=== PATIENT | female | born 1990 | race Two or more races ===

== ENCOUNTER 2021-12-03 14:25 | Emergency (ER) | payer MEDICAID, SELFPAY ==
[2021-12-03] MEDS ORDERED: Ondansetron ODT 4 MG TAB ONE (15:19)
== END 2021-12-03 16:04 | disposition home or self-care (01) ==
LOC: ERS 14:25
DX: B34.9 Viral infection, unspecified (principal); R42 Dizziness and giddiness; Z20.822 Contact with and (suspected) exposure to COVID-19
CPT/HCPCS: 99284; Q0162; U0003; U0005

== ENCOUNTER 2021-12-20 11:42 | Emergency (ER) | payer SELFPAY ==
[2021-12-20] MEDS ORDERED: Morphine 4 MG/ML VIAL ONE (13:20)
== END 2021-12-20 14:46 | disposition home or self-care (01) ==
LOC: ERS 11:42
DX: S93.324A Dislocation of tarsometatarsal joint of right foot, initial encounter (principal); Y04.2XXA Assault by strike against or bumped into by another person, initial encounter
CPT/HCPCS: 96372; J2270

== ENCOUNTER 2021-12-29 06:16 | Day surgery (SDC) | payer SELFPAY ==
[2021-12-28 13:56] VITALS: BMI 21.4
[2021-12-29] MEDS ORDERED: Neomycin-Polymyxin 1 ML AMP ONE (06:36)
[2021-12-29] MEDS ORDERED: Ropivacaine 0.5% HCl/PF (150 MG/30 ML VIAL) ONE (06:45)
[2021-12-29] MEDS ORDERED: Midazolam HCl 2 mg/2 ml Vial ONE (06:45)
[2021-12-29] MEDS ORDERED: FENTANYL 50 MCG/ML 1 ML VIAL ONE ×3 (06:45→09:56)
[2021-12-29] MEDS ORDERED: CEFAZOLIN 2 GM VIAL ONE (07:53)
[2021-12-29] MEDS ORDERED: Sodium Chloride 0.9% 100 ML ONE (07:54)
[2021-12-29] MEDS ORDERED: Ondansetron PF 4 MG/2 ML Vial ONE (08:11)
[2021-12-29] MEDS ORDERED: Dexamethasone 20 MG/5 ML VIAL ONE (08:11)
[2021-12-29] MEDS ORDERED: PROPOFOL 200 MG/20 ML VIAL ONE (08:11)
[2021-12-29] MEDS ORDERED: Ketorolac Tromethamine 30 MG/ML VIAL ONE (08:11)
== END 2021-12-29 13:13 | disposition home or self-care (01) ==
LOC: SDC 06:16
PROVIDERS: ATTEND Orthopaedic Surgery
PROC: 0SSK04Z Reposition Right Tarsometatarsal Joint with Internal Fixation Device, Open Approach (ICD-10-PCS; principal; 2021-12-29)
DX: S93.324A Dislocation of tarsometatarsal joint of right foot, initial encounter (principal); S93.321A Subluxation of tarsometatarsal joint of right foot, initial encounter; X58.XXXA Exposure to other specified factors, initial encounter
CPT/HCPCS: C1713; J1100; J1885; J2250; J2405; J2704; J2795; J3010; J3490